=== PATIENT | female | born 2000 | race Caucasian/White ===

== ENCOUNTER 2019-10-14 09:00 | Inpatient (IN) ==
[2019-10-14] MEDS ORDERED: Metoclopramide 10 MG/2 ML VIAL IVP PRN (12:38)
[2019-10-14] MEDS ORDERED: Ondansetron 4 MG/2 ML VIAL IVP PRN ×2 (12:38→14:22)
[2019-10-14] MEDS ORDERED: Naloxone 0.4 MG/ML INJ IVP PRN ×3 (12:38→14:22)
[2019-10-14] MEDS ORDERED: *HR* FentaNYL (PF) 100 MCG/2 ML VIAL IVP PRN (12:38)
[2019-10-14] MEDS ORDERED: Famotidine 20 MG/2 ML VIAL IVP PRN (12:38)
[2019-10-14] MEDS ORDERED: Lidocaine 1% 20 ML MDV INFILT PRN (12:38)
[2019-10-14] MEDS ORDERED: Oxytocin 20 units/ LR 1000 mL 20 UNIT/1,000 ML BAG IVC SCH (12:45)
[2019-10-14] MEDS ORDERED: D5% in 0.45% NACL 1,000 ML IVC SCH (12:45)
[2019-10-14 12:58] LABS: Basophils # 0.1 K/mcL (0.0-0.2); Basophils % 0.7 %; Eosinophils # 0.1 K/mcL (0.0-0.6); Hematocrit 37.1 % (35.3-44.9); Hemoglobin 11.9 g/dL (11.5-15.4); Immature Granulocytes % 2.2 % (0-4); Lymphocytes # 1.6 K/mcL (0.6-4.6); Mean Corpuscular HGB Conc 32.1 g/dL (31.6-35.5); Mean Corpuscular Hemoglobin 28.3 pg (28.0-33.3); Mean Corpuscular Volume 88.3 fL (83.0-100.0); Mean Platelet Volume 11.4 fL (9.4-12.4); Monocytes # 0.7 K/mcL (0.0-1.3); Monocytes % 6.9 %; Neutrophils # 7.5 K/mcL (1.6-8.9); Platelet Count 212 K/mcL (140-400); Red Cell Distribution Width 15.7 % (11.5-14.5); Segmented Neutrophils % 73.2 %; White Blood Count 10.2 K/mcL (4.3-11.1)
[2019-10-14] MEDS ORDERED: D5% in Lactated Ringers 1,000 ML IVC SCH (13:00)
[2019-10-14] MEDS ORDERED: Ringers Solution, Lactated 1,000 ML ONE ×2 (13:45→20:21)
[2019-10-14] MEDS ORDERED: EPHEDrine 50 MG/ML VIAL IVP PRN (14:22)
[2019-10-14] MEDS ORDERED: Ropivacaine/PF 0.2% 20 ML VIAL EP ONE (14:22)
[2019-10-14] MEDS ORDERED: *HR* FentaNYL (PF) 100 MCG/2 ML VIAL EP ONE (14:22)
[2019-10-14] MEDS ORDERED: Epidural Premix (fent/bupiv) 110 ML EP SCH (14:30)
[2019-10-14] MEDS ORDERED: Ropivacaine/PF 0.2% 20 ML VIAL ONE (17:48)
[2019-10-14] MEDS ORDERED: *HR* FentaNYL (PF) 100 MCG/2 ML VIAL ONE (17:48)
[2019-10-15] MEDS ORDERED: Diphenoxylate/Atropine 1 TAB TABLET PO PRN (02:18)
[2019-10-15] MEDS ORDERED: Oxytocin 20 units/ LR 1000 mL 20 UNIT/1,000 ML BAG IVC SCH (04:34)
[2019-10-15] MEDS ORDERED: Acetaminophen 325 MG TABLET PO PRN (04:34)
[2019-10-15] MEDS ORDERED: Benzocaine/Menthol 56 GM AEROSOL SPRAY TP PRN (04:34)
[2019-10-15] MEDS ORDERED: Sennosides 8.6 MG TABLET PO PRN (04:34)
[2019-10-15] MEDS ORDERED: Oxytocin 20 units/ LR 1000 mL 20 UNIT/1,000 ML BAG IVC ONE (04:34)
[2019-10-15] MEDS ORDERED: Rho Immune Globulin 1,500 UNIT SYRINGE IM PRN (04:34)
[2019-10-15] MEDS ORDERED: Measles/Mumps/Rubella Vacc 0.5 ML VIAL SQ PRN (04:34)
[2019-10-15] MEDS ORDERED: Ondansetron 4 MG/2 ML VIAL IVP PRN (06:07)
[2019-10-15] MEDS: Ibuprofen 600 MG TABLET PO PRN ×2 (09:56→20:04)
[2019-10-15] MEDS: Prenatal Vit/FA 1 EACH TABLET PO SCH (09:56)
[2019-10-15] MEDS ORDERED: Methylergonovine 0.2 MG/ML AMPUL IM ONE (15:28)
[2019-10-16 04:32] LABS: Basophils # 0.1 K/mcL (0.0-0.2); Basophils % 0.5 %; Eosinophils # 0.1 K/mcL (0.0-0.6); Eosinophils % 0.9 %; Hematocrit 28.4 % (35.3-44.9); Immature Granulocytes % 1.7 % (0-4); Lymphocytes # 2.5 K/mcL (0.6-4.6); Mean Corpuscular Hemoglobin 29.1 pg (28.0-33.3); Mean Corpuscular Volume 90.7 fL (83.0-100.0); Mean Platelet Volume 10.9 fL (9.4-12.4); Monocytes # 1.2 K/mcL (0.0-1.3); Neutrophils # 9.5 K/mcL (1.6-8.9); Platelet Count 186 K/mcL (140-400); Red Blood Count 3.13 M/mcL (3.82-4.97); Red Cell Distribution Width 16.2 % (11.5-14.5); Segmented Neutrophils % 69.9 %; White Blood Count 13.7 K/mcL (4.3-11.1)
[2019-10-16 04:33] LABS: Hemoglobin 9.1 g/dL (11.5-15.4)
[2019-10-16] MEDS: Prenatal Vit/FA 1 EACH TABLET PO SCH (09:07)
[2019-10-16] MEDS: Ibuprofen 600 MG TABLET PO PRN ×2 (09:07→15:32)
[2019-10-16 15:18] VITALS: BP 120/75
== END 2019-10-16 15:29 | disposition home or self-care (01) | DRG 807 ==
LOC: 1NENULAB 12:14 → 1NENUOBS 10-15 04:34
PROVIDERS: ADMIT Obstetrics & Gynecology; ATTEND Obstetrics & Gynecology